=== PATIENT | female | born 1975 | race Two or more races ===

== ENCOUNTER 2018-06-05 19:36 | Emergency (ER) | END 2018-06-05 22:37 | disposition home or self-care (01) ==

== ENCOUNTER 2018-06-07 08:57 | Emergency (ER) | END 2018-06-07 11:24 | disposition home or self-care (01) ==

== ENCOUNTER 2018-10-01 05:14 | Inpatient (IN) | payer OTHER ==
[~2018-10-01] VITALS: Ht 149.9 cm; Wt 64.1 kg
[~2018-10-01 05:14] MED LIST: ACET500C5 PO; CEPH-443 PO; CIPR500T4 PO
--- NOTE | 2018-10-01 06:18 | ERD ---
ER Documentation Chief Complaint Chief Complaint woke up sweaty, dizzy, felt hot, states vision went black for a few seconds HPI 43-year-old female ambulatory to the ED complaining of feeling weak, dizzy and hot. Symptoms began last night when she went to bed and upon awakening to go to the bathroom early this morning felt lightheaded, dizzy as if she would pass out and vision got blurry for a few seconds. Denies headache or neck pain. No chest pain, palpitations, shortness of breath, cough or hemoptysis. Denies abdominal p ain, nausea, vomiting, diarrhea or constipation. Polyuria but no dysuria, hematuria or flank pain. No vaginal discharge or bleeding. Denies URI symptoms, odynophagia or rhinorrhea. SUbjective fevers and chills. ROS All systems reviewed and are negative except as per history of present illness. Medications Home Meds Discontinued Scripts Ciprofloxacin Hcl* (Ciprofloxacin Hcl*) 500 Mg Tablet, 500 MG PO BID for 7 Days, TAB Prov:QUINTIN MANZO PA-C 06/07/18 Acetaminophen* (Tylophen*) 500 Mg Capsule, 1 CAP PO Q6H PRN for PAIN AND OR ELEVATED TEMP, #20 CAP Prov:PAVEL GARVIN PA-C 06/05/18 Cephalexin* (Keflex*) 500 Mg Capsule, 500 MG PO TID for 7 Days, CAP Prov:PAVEL GARVIN PA-C 06/05/18 Allergies Allergies: Coded Allergies: No Known Drug Allergies (Verified Allergy, Unknown, 10/01/18) PMhx/Soc Reviewed in chart. As per HPI. History of Surgery: Yes () Anesthesia Reaction: No Hx Neurological Disorder: No Hx Respiratory Disorders: No Hx Cardiac Disorders: No Hx Psychiatric Problems: No Hx Miscellaneous Medical Probl: Yes (h/o UTI) Hx Alcohol Use: No Hx Substance Use: No Hx Tobacco Use: No Smoking Status: Never smoker FmHx Mother: Diabetes. Father: Prostate cancer Physical Exam Vitals Vital Signs Date Temp Pulse Resp B/P (MAP) Pulse Ox O2 O2 Flow FiO2 Time Delivery Rate 10/01/18 113 18 127/80 100 Room Air 10:15 (96) 10/01/18 101.0 09:21 10/01/18 101.0 124 18 126/84 100 Room Air 09:10 (98) 10/01/18 100.5 135 18 135/78 100 Room Air 08:00 (97) 10/01/18 103.2 06:33 10/01/18 103.5 138 18 146/88 100 Room Air 06:30 (107) 10/01/18 101.8 139 21 146/88 100 Room Air 06:14 (107) 10/01/18 100.1 160 20 153/92 99 05:18 (112) Physical Exam Const: Alert, moderate distress Head: Atraumatic Eyes: Pupils equal react to light, extraocular movements are intact normal Conjunctiva ENT: Normal External Ears, Nose and Mouth. Pharynx is clear without erythema or exudate. Neck: Full range of motion. No meningismus. No lymphadenopathy or tenderness. Resp: Breath sounds are equal and clear to auscultation bilaterally Cardio: Tachycardic, regular rate and rhythm, no murmurs Abd: Soft, non tender, non distended. Normal bowel sounds Skin: No petechiae or rashes Back: No midline or flank tenderness Ext: No cyanosis, or edema Neur: Awake and alert. No focal deficit Psych: Anxious but not depressed. Result Diagram: 10/02/18 0553 10/02/18 0553 Results 24 hrs Laboratory Tests Test 10/01/18 05:45 10/01/18 06:54 10/01/18 07:24 10/01/18 08:59 White Blood Count 14.1 10^3/ul Red Blood Count 4.78 10^6/ul Hemoglobin 14.2 g/dl Hematocrit 42.1 % Mean Corpuscular 88.1 fl Volume Mean Corpuscular 29.7 pg Hemoglobin Mean Corpuscular 33.7 g/dl Hemoglobin Concen t Red Cell 12.4 % Distribution Width Platelet Count 345 10^3/UL Mean Platelet 10.7 fl Volume Immature 0.500 % Granulocytes % Neutrophils % 83.8 % Lymphocytes % 5.9 % Monocytes % 8.5 % Eosinophils % 0.9 % Basophils % 0.4 % Nucleated Red 0.0 /100WBC Blood Cells % Immature 0.070 10^3/ul Granulocytes # Neutrophils # 11.9 10^3/ul Lymphocytes # 0.8 10^3/ul Monocytes # 1.2 10^3/ul Eosinophils # 0.1 10^3/ul Basophils # 0.1 10^3/ul Nucleated Red 0.0 10^3/ul Blood Cells # Prothrombin Time 12.4 Sec Prothrombin Time 1.0 Ratio INR International 0.91 Normalized Ratio Activated 25.1 Sec Partial Thrombopl ast Time Sodium Level 137 mmol/L Potassium Level 4.0 mmol/L Chloride Level 104 mmol/L Carbon Dioxide 21 mmol/L Level Anion Gap 12 Blood Urea 11 mg/dl Nitrogen Creatinine 0.76 mg/dl Est Glomerular > 60 mL/min Filtrat Rate mL/min Glucose Level 135 mg/dl Calcium Level 9.3 mg/dl Total Bilirubin 0.1 mg/dl Direct Bilirubin 0.00 mg/dl Indirect 0.1 mg/dl Bilirubin Aspartate Amino 36 IU/L Transf (AST/SGOT) Alanine 11 IU/L Aminotransferase (ALT/SGPT) Alkaline 135 IU/L Phosphatase Troponin I < 0.012 ng/ml Total Protein 8.3 g/dl Albumin 4.3 g/dl Globulin 4.00 g/dl Albumin/Globulin 1.07 Ratio POC Venous 2.3 mmol/L 2.0 mmol/L Lactate Urine Color STRAW Urine Clarity CLEAR Urine pH 6.0 Urine Specific 1.005 [place] Urine Ketones NEGATIVE mg/dL Urine Nitrite NEGATIVE mg/dL Urine Bilirubin NEGATIVE mg/dL Urine NEGATIVE mg/dL Urobilinogen Urine Leukocyte NEGATIVE Ga/ul Esterase Urine Hemoglobin NEGATIVE mg/dL Urine Glucose NEGATIVE mg/dL Urine Total NEGATIVE mg/dl Protein Urine NEGATIVE Test Test 10/01/18 10:30 Lactic Acid Level 1.8 mmol/L Current Medications Medications Dose Sig/Cyril Start Time Status Last (Trade) Ordered Route PRN Stop Time Admin Dose Reason Admin Sodium 1,900 ml BOLUS OVER 2 10/01/18 DC 10/01/18 Chloride HOURS STAT 06:19 06:33 (NS) IV* 10/01/18 06:22 650 mg ONCE STAT 10/01/18 DC 10/01/18 Acetaminophen PO 06:19 06:33 (Tylenol 10/01/18 06:22 Tab) Cefepime HCl 50 ml @ ONCE STAT 10/01/18 DC 10/01/18 100 mls/hr IVPB 07:07 07:18 10/01/18 07:36 Vancomycin 250 ml @ ONCE ONCE 10/01/18 DC 10/01/18 HCl 125 mls/hr IVPB 07:30 07:54 10/01/18 09:29 Ibuprofen 600 mg STK-MED 10/01/18 DC (Motrin) ONCE .ROUTE 09:09 10/01/18 09:10 Ibuprofen 600 mg ONCE ONCE 10/01/18 DC 10/01/18 (Motrin) PO 09:30 09:21 10/01/18 09:31 Sodium 1,000 ml @ Q1H ONCE 10/01/18 DC 10/01/18 Chloride 1,000 mls/hr IV 09:30 09:21 10/01/18 10:29 Sodium 1,000 ml @ [id number] IV 10/01/18 10/02/18 Chloride 70 mls/hr 10:48 01:06 IV Flush 3 ml PER 10/01/18 (NS 3 ml) PROTOCOL IV 11:00 Ondansetron 4 mg Q6H PRN 10/01/18 HCl (Zofran IV NAUSEA 11:00 Inj) AND/OR VOMITING 650 mg Q6H PRN 10/01/18 10/01/18 Acetaminophen PO PAIN 11:00 20:55 (Tylenol LEVEL 1-3 OR Tab) FEVER 1 tab Q6H PRN 10/01/18 10/01/18 Acetaminophen PO PAIN 11:00 19:02 / LEVEL 4-6 Hydrocodone Bitart ([place] (5/325)) Vancomycin VANCOMYCIN PER 10/01/18 HCl (Vanco PER PHARMACY PROTOCOL XX 11:00 Iv Per Pharmacy) Procedures/MDM DOCUMENTS REVIEWED: ED nurse, prior records EKG: Time: 06 52. Sinus tachycardia. Ventricular rate 142. Normal [place]/QRS. Left axis deviation. Minimal voltage criteria for left ventricular hypertrophy. No acute ST segment elevation or depression. My Interpretation IMAGING: Chest AP portable. Cardiac silhouette is normal. The costophrenic angles are clear. No effusions or infiltrates. No abnormalities of the bony thorax. My interpretation. MEDICAL DECISION MAKIN-year-old female ambulatory to the ED complaining of feeling weak, dizzy and hot. CBC significant for leukocytosis. Chemistry negative for electrolyte abnormalities, hyper/hypoglycemia or renal insufficiency. Liver function tests remarkable for mildly elevated alk phosphatase but no hyperbilirubinemia or transaminitis. Urinalysis negative. No radiographic evidence of pneumonia. EKG significant for sinus tachycardia wi thout ischemic changes or ectopy. Abdominal exam is completely benign without tenderness, rebound, guarding, signs of peritonitis or an occult intra-abdominal source including but not limited to appendicitis, diverticulitis, bowel obstruction, obstructive uropathy, abdominal aortic aneurysm and occult neoplasm hence advanced imaging is not indicated. Influenza A/B is negative. Multiple criteria for systemic inflammatory response syndrome including fever, tachycardia, tachypnea and leukocytosis. Normal saline 30 cc/kg bolus given and broad-spectrum antibiotics after cultures. Initial lactate 2.3 mmol/L consistent with severe sepsis and repeat is 2.0 mmol/L. No infectious source is identified possible viral etiology although cultures are pending. No meningismus, signs of meningitis or encephalitis and lumbar puncture is not indicated. Patient observed in the ED for over 4 hours and there is persistent tachycardia despite antipyretics and aggressive fluid resuscitation. Patient w ill be admitted to telemetry for infectious disease consultation, cardiac monitoring, further evaluation and management. Sepsis Documentation: Patient's infectious symptoms have not stabilized and the patient is at risk of rapid decompensation. The patient will be admitted for careful hydration, antibiotic therapy, and infectious source control. SEVERE SEPSIS CRITERIA: Infectious source: [] End organ damage indicated by: Lactate > 2.0 mmol/L SEPSIS MANAGEMENT Time of recognition of severe sepsis: 06:54. Time of recognition of septic shock: Time of recognition of septic shock: No criteria for septic shock at this time. 3 HOUR BUNDLE Blood cultures x 2 before broad-spectrum antibiotics: Yes 30 ml/kg NS bolus: Completed Initial lactate: 2.3 mmol/L Repeat lactate []mmol/L SEPTIC SHOCK ASSESSMENT: Lactic acid > 4.0: No Persistent hypotension (SBP < 90 or 40 mmHg drop, MAP < 65) despite 30 mL/kg IV fluid bolus: No CRITICAL CARE Critical care time 35 minutes Emergent fluid management while maintaining close respiratory support. Provision of immediate and broad-spectrum antibiotic therapy. Simultaneous assessment for possible sources in order to direct targeted therapy. Consideration for invasive and chemical support to prevent cardiopulmonary collapse. Critical care time is independent of procedures performed. Departure Diagnosis: Primary Impression: Fever Fever type: unspecified Qualified Codes: R50.9 - Fever, unspecified Additional Impressions: SIRS (systemic inflammatory response syndrome) Severe sepsis Tachycardia Condition: Serious TATI SERRATO MD Oct 01, 2018 06:18
[2018-10-01] MEDS ORDERED: ACETAMINOPHEN 325 MG TAB PO STA (06:19)
[2018-10-01] MEDS ORDERED: SODIUM CHLORIDE 0.9% 1L BAG IV* STA (06:19)
[2018-10-01] MEDS ORDERED: CEFEPIME 2GM/50 ML (PMX) 50 ML IVPB STA (07:07)
[2018-10-01] MEDS ORDERED: VANCOMYCIN 1 GM (PMX) 250 ML IVPB ONE (07:30)
[2018-10-01] MEDS ORDERED: IBUPROFEN 600 MG TAB ONE (09:09)
[2018-10-01] MEDS ORDERED: SOD CHLORIDE 0.9% 1,000 ML IV ONE (09:30)
[2018-10-01] MEDS ORDERED: IBUPROFEN 600 MG TAB PO ONE (09:30)
[2018-10-01] MEDS ORDERED: VANCOMYCIN IV PER PHARMACY XX SCH (11:00)
[2018-10-01] MEDS ORDERED: ONDANSETRON 4 MG INJ IV PRN ×2 (11:00→12:00)
[2018-10-01] MEDS ORDERED: HYDROCODONE/APAP (5/325) TAB PO PRN (11:00)
[2018-10-01] MEDS ORDERED: NACL 0.9% 3 ML SYG IV SCH (11:00)
[2018-10-01] MEDS ORDERED: ACETAMINOPHEN 325 MG TAB PO PRN ×2 (11:00→12:00)
--- NOTE | 2018-10-01 11:29 | CONS ---
Date/Time of Note Date/Time of Note DATE: 10/01/18 TIME: 11:02 Assessment/Plan Assessment/Plan Hospital Course ID SHORT NOTE=> Please refer to Dr. Rojo's FULL CONSULT NOTE pending dictation. CURRENT ABX: DAY # 1=> VANCO IV + CEFEPIME 10/01/1845 10/01/18 0545 HOSPITAL EMERGENCY ROOM EVENTS * 43 yo F presented W/tachycardia (SVT), fevers 103.5, LEUKOCYTOSIS 14.1, (+)venous lactic acid elevated with report of near syncopal episode reported "sweaty, dizzy, felt hot, states vision went black for a few seconds upon ambulation." * QUOTING ED MD INITIAL NOTE: "Denies headache or neck pain. No chest pain, palpitations, shortness of breath, cough or hemoptysis. Denies abdominal pain, nausea, vomiting, diarrhea or constipation. Polyuria but no dysuria, hematuria or flank pain. No vaginal discharge or bleeding. Denies URI symptoms, odynophagia or rhinorrhea. Subjective fevers and chills." INITIAL WORK UP RESULTS * 10/01/18 UA - Negative for concern UTI * 10/01/18 INFLUENZA A & B BY EIA Final INFLU A&B BY EIA INFLUENZA A NEGATIVE (Ref Range Neg) INFLUENZA B NEGATIVE (Ref Range Neg) * 10/01/18 CXR: FINDINGS:The cardiomediastinal silhouette has a normal appearance. There is a shallow inspiration. There is no evidence for an infiltrate. There is no evidence for congestive heart failure. There is no evidence for pneumothorax. The osseous structures are intact. IMPRESSION:No evidence for active cardiopulmonary disease. * EKG: Time: . Sinus tachycardia. Ventricular rate 142. Normal [place]/QRS. Left axis deviation. Minimal voltage criteria for left ventricular hypertrophy. No acute ST segment elevation or depression. * 10/01/[address]: IMPRESSION:No acute intracranial pathology identified. If there is persistent clinical concern, consider further evaluation with MRI. ROS: All systems reviewed and are negative except as per history of present illness. PMHX: G3, P2, Miscarriage x1=> UTI w/recurrent Vaginal bleeding in MAY 2018 resulting in miscarriage per prior ED Visit / US PELVIS 06/05/2018 PSURGHx: FAMILY HX: Father w/Prostate CA SOCIAL HX: * Hx Alcohol Use: No * Hx Substance Use: No * Hx Tobacco Use: No * Smoking Status: Never smoker MICRO * 10/01/18 BCx --> PENDING PHYSICAL EXAMINATION: GENERAL: Afebrile, VSS, HEENT: AT, NC, anicteric NECK: Supple, trach midline CHEST: Equal chest rise bilaterally, without dyspnea on observation HEART: Pulse RRR ABDOMEN: Soft / NT EXTREMITIES: Warm, dry SKIN: No rash, no diaphoresis ID ASSESSMENT 43 yo F admit with: 1. SEPSIS PER SIRS CRITERIA: tachycardia (SVT), fevers 103.5, LEUKOCYTOSIS 14.1, (+)venous lactic acid elevated ON ADMISSION. 2. Fever of unknown origin -- Possibly viral syndrome? 3. Near syncopal episode in setting of #1 ( )MRSA Nares -> will order ABX ALLERGIES: NKDA INVASIVES: PI CURRENT ABX: DAY # 1=> VANCO IV + CEFEPIME ID RECOMMENDATIONS/PLAN: Continue current ABX -- await micro results . Result Diagram: 10/01/18 0545 10/01/18 0545 Results 24hrs Laboratory Tests Test 10/01/18 05:45 10/01/18 06:54 10/01/18 07:24 10/01/18 08:59 White Blood Count 14.1 #H Red Blood Count 4.78 Hemoglobin 14.2 Hematocrit 42.1 Mean Corpuscular 88.1 Volume Mean Corpuscular 29.7 Hemoglobin Mean Corpuscular 33.7 Hemoglobin Concent Red Cell 12.4 Distribution Width Platelet Count 345 Mean Platelet Volume 10.7 H Immature 0.500 H Granulocytes % Neutrophils % 83.8 H Lymphocytes % 5.9 L Monocytes % 8.5 Eosinophils % 0.9 Basophils % 0.4 Nucleated Red Blood 0.0 Cells % Immature 0.070 H Granulocytes # Neutrophils # 11.9 H Lymphocytes # 0.8 Monocytes # 1.2 H Eosinophils # 0.1 Basophils # 0.1 Nucleated Red Blood 0.0 Cells # Prothrombin Time 12.4 Prothrombin Time 1.0 Ratio INR International 0.91 Normalized Ratio Activated 25.1 Partial Thromboplast Time Sodium Level 137 Potassium Level 4.0 Chloride Level 104 Carbon Dioxide Level 21 Anion Gap 12 Blood Urea Nitrogen 11 Creatinine 0.76 Est Glomerular > 60 Filtrat Rate mL/min Glucose Level 135 Calcium Level 9.3 Total Bilirubin 0.1 L Direct Bilirubin 0.00 Indirect Bilirubin 0.1 Aspartate Amino 36 Transf (AST/SGOT) Alanine 11 L Aminotransferase (AL T/SGPT) Alkaline Phosphatase 135 H Troponin I < 0.012 Total Protein 8.3 H Albumin 4.3 Globulin 4.00 H Albumin/Globulin 1.07 Ratio POC Venous Lactate 2.3 *H 2.0 Urine Color STRAW Urine Clarity CLEAR Urine pH 6.0 Urine Specific 1.005 [place] Urine Ketones NEGATIVE Urine Nitrite NEGATIVE Urine Bilirubin NEGATIVE Urine Urobilinogen NEGATIVE Urine Leukocyte NEGATIVE Esterase Urine Hemoglobin NEGATIVE Urine Glucose NEGATIVE Urine Total Protein NEGATIVE Test 10/01/18 10:30 Lactic Acid Level 1.8 Consultation Date/Type/Reason Admit Date/Time Initial Consult Date 10/01/18 Exam/Review of Systems Vital Signs Vitals Vital Signs Date Temp Pulse Resp B/P (MAP) Pulse Ox O2 O2 Flow FiO2 Time Delivery Rate 10/01/18 113 18 127/80 100 Room Air 10:15 (96) 10/01/18 101.0 09:21 Medications Medications Current Medications Cefepime HCl 50 ml @ 100 mls/hr Q12 IVPB ; Start 10/01/18 at 19:00; Status UNV Sodium Chloride 1,000 ml @ 70 mls/hr [id number] IV ; Start 10/01/18 at 10:48; Status UNV IV Flush (NS 3 ml) 3 ml PER PROTOCOL IV ; Start 10/01/18 at 11:00; Status UNV Ondansetron HCl (Zofran Inj) 4 mg Q6H PRN IV NAUSEA AND/OR VOMITING; Start 10/01/18 at 11:00; Status UNV Acetaminophen (Tylenol Tab) 650 mg Q6H PRN PO PAIN LEVEL 1-3 OR FEVER; Start at 11:00; Status UNV Acetaminophen/ Hydrocodone Bitart ([place] (5/325)) 1 tab Q6H PRN PO PAIN LEVEL 4-6; Start 10/01/18 at 11:00; Status UNV ROBERTO VEGA NP Oct 01, 2018 11:12
--- NOTE | 2018-10-01 11:36 | HP ---
Date/Time of Note Date/Time of Note DATE: 10/01/18 TIME: 11:36 Assessment/Plan VTE Prophylaxis Pharmacological prophylaxis: other Lines/Catheters IV Catheter Type (from Nrs): Saline Lock Assessment/Plan Hospital Course Objective Physical exam General: Patient is laying in bed and answers questions appropriately Mentation: Patient is alert and oriented 4, Head: Normocephalic atraumatic Eyes: EOMI, pupils reactive to light Neck: Supple, nontender, midline Respiratory: Clear to auscultation bilaterally Cardiovascular: Tachycardic rate, no obvious murmurs Gastrointestinal: non-tender to palpation, bowel sounds heard. Neurological: Moves all extremities spontaneously Skin: No new skin lesions Assessment and plan Fever, leukocytosis, tachycardia -No known source as of yet -Chest x-ray clear, UA negative -Blood cultures pending -empiric antibiotics for now as we do not know the exact cause of her symptoms -ID on board Near syncope and dizziness with possible blurry vision -CT of the brain rule out posteriors circulation CVA, however very unlikely, symptoms are likely due to fever and tachycardia Tachycardia -Echo pending Lactic acidosis -Seen only on venous lactate, lactic acid in the blood is within normal limits Disposition -Monitor in the inpatient setting for fever, continue workup for source of fever. Infectious disease consultation pending Result Diagram: 10/01/18 0545 10/01/18 0545 Results 24hrs Laboratory Tests Test 10/01/18 05:45 10/01/18 06:54 10/01/18 07:24 10/01/18 08:59 White Blood Count 14.1 #H Red Blood Count 4.78 Hemoglobin 14.2 Hematocrit 42.1 Mean Corpuscular 88.1 Volume Mean Corpuscular 29.7 Hemoglobin Mean Corpuscular 33.7 Hemoglobin Concent Red Cell 12.4 Distribution Width Platelet Count 345 Mean Platelet Volume 10.7 H Immature 0.500 H Granulocytes % Neutrophils % 83.8 H Lymphocytes % 5.9 L Monocytes % 8.5 Eosinophils % 0.9 Basophils % 0.4 Nucleated Red Blood 0.0 Cells % Immature 0.070 H Granulocytes # Neutrophils # 11.9 H Lymphocytes # 0.8 Monocytes # 1.2 H Eosinophils # 0.1 Basophils # 0.1 Nucleated Red Blood 0.0 Cells # Prothrombin Time 12.4 Prothrombin Time 1.0 Ratio INR International 0.91 Normalized Ratio Activated 25.1 Partial Thromboplast Time Sodium Level 137 Potassium Level 4.0 Chloride Level 104 Carbon Dioxide Level 21 Anion Gap 12 Blood Urea Nitrogen 11 Creatinine 0.76 Est Glomerular > 60 Filtrat Rate mL/min Glucose Level 135 Calcium Level 9.3 Total Bilirubin 0.1 L Direct Bilirubin 0.00 Indirect Bilirubin 0.1 Aspartate Amino 36 Transf (AST/SGOT) Alanine 11 L Aminotransferase (AL T/SGPT) Alkaline Phosphatase 135 H Troponin I < 0.012 Total Protein 8.3 H Albumin 4.3 Globulin 4.00 H Albumin/Globulin 1.07 Ratio POC Venous Lactate 2.3 *H 2.0 Urine Color STRAW Urine Clarity CLEAR Urine pH 6.0 Urine Specific 1.005 [place] Urine Ketones NEGATIVE Urine Nitrite NEGATIVE Urine Bilirubin NEGATIVE Urine Urobilinogen NEGATIVE Urine Leukocyte NEGATIVE Esterase Urine Hemoglobin NEGATIVE Urine Glucose NEGATIVE Urine Total Protein NEGATIVE Test 10/01/18 10:30 Lactic Acid Level 1.8 HPI/ROS Admit Date/Time Admit Date/Time Hx of Present Illness Patient is a female with no significant past medical history presents to [facility] for acute onset fever, chills, tachycardia. Patient states that she was to her normal health as of last night she awoke to the symptoms. Patient states that she woke up to fevers, chills, tachycardia, near syncope with dizziness and almost blurry vision. Patient currently feels a lot better at this time, no blurry vision or dizziness however does still feel feverish and still feels palpitations. Patient denies any type of pain throughout her entire body, no dysuria, no nausea no vomiting no abdominal pain no leg pain no headache no chest pain no shortness of breath. PMH/Family/Social Past Medical History Medications Current Medications Cefepime HCl 50 ml @ 100 mls/hr Q12 IVPB ; Start 10/01/18 at 19:00; Status UNV Sodium Chloride 1,000 ml @ 70 mls/hr [id number] IV ; Start 10/01/18 at 10:48; Status UNV IV Flush (NS 3 ml) 3 ml PER PROTOCOL IV ; Start 10/01/18 at 11:00; Status UNV Ondansetron HCl (Zofran Inj) 4 mg Q6H PRN IV NAUSEA AND/OR VOMITING; Start 10/01/18 at 11:00; Status UNV Acetaminophen (Tylenol Tab) 650 mg Q6H PRN PO PAIN LEVEL 1-3 OR FEVER; Start 10/01/18 at 11:00; Status UNV Acetaminophen/ Hydrocodone Bitart ([place] (5/325)) 1 tab Q6H PRN PO PAIN LEVEL 4-6; Start 10/01/18 at 11:00; Status UNV Vancomycin HCl (Vanco Iv Per Pharmacy) VANCOMYCIN PER PHARMACY PER PROTOCOL XX ; Start 10/01/18 at 11:00; Status UNV Coded Allergies: No Known Drug Allergies (Verified Allergy, Unknown, 10/01/18) Social History Smoking Status: Never smoker Exam/Review of Systems Vital Signs Vitals Vital Signs Date Temp Pulse Resp B/P (MAP) Pulse Ox O2 O2 Flow FiO2 Time Delivery Rate 10/01/18 113 18 127/80 100 Room Air 10:15 (96) 10/01/18 101.0 09:21 RODRIGO GUERRA Oct 01, 2018 11:36
--- NOTE | 2018-10-01 12:47 | CONS ---
DATE OF ADMISSION: 10/01/2018 DATE OF CONSULTATION: 10/01/2018 TYPE OF CONSULTATION: Infectious Disease. REASON FOR CONSULTATION: Antibiotic management. HISTORY OF PRESENT ILLNESS: Kristin Abreu is a 43-year-old female who comes in to the emergency room w ith feelings of weakness, dizziness and warmth. The symptoms began last night when she went to bed. Early this morning she felt lightheaded, dizzy and felt that she would pass out. Her vision got blur ry for a few seconds. She denies abdominal pain, nausea, vomiting. She has polyuria but no dysuria. PAST MEDICAL AND SURGICAL HISTORY: Status post . Also, history of UTI in the past. FAMILY HISTORY: Noncontributory. SOCIAL HISTORY: She does not smoke, drink or abuse drugs. ALLERGIES: NONE TO PENICILLIN, SULFA OR FOODS. MEDICATIONS: Per chart. REVIEW OF SYSTEMS: Noncontributory. PHYSICAL EXAMINATION: GENERAL: The patient is a well-developed, well-nourished female who is in moderate distress. VITAL SIGNS: Temperature T-max 103.5. SKIN: Without generalized rash. HEENT: Within normal limits. NECK: Supple. LYMPH NODES: None palpable. CHEST: Decreased breath sounds at the bases. HEART: Without murmur or gallop. She is tachycardic. ABDOMEN: Soft, nontender, without organosplenomegaly or masses. EXTREMITIES: Without cyanosis, clubbing, or edema. RECTAL AND GENITAL: Deferred. NEUROLOGIC: No focal neurological abnormality. PSYCHIATRIC: She is anxious, but not depressed. ANCILLARY LABORATORY DATA: White count of 14.1, H and H of 14.2 and 42.1, platelet count 345,000. B UN and creatinine 11/0.76, glucose of 135. IMPRESSION AND PLAN: The patient felt to be septic. She was hydrated, placed on vancomycin and cefe pime. Her chest x-ray showed no infiltrates. Chemistry is negative for electrolyte imbalances. Sruthi er function tests showed mildly elevated alkaline phosphatase, no radiographic evidence of pneumonia. She has criteria for systemic inflammatory response syndrome with fever, tachycardia, tachypnea and leukocytosis. Her abdomen is benign. Patient appears septic. Therefore, she was started on vancom ycin and cefepime and will look for the source of her infection. I will dictate my findings to the ospitalist. Dictated By: YULI CHÁVEZ MD, JD/EDWINA Conf#: [id number] [facility]#: [id number]
--- NOTE | 2018-10-01 14:56 | RADRPT ---
Echocardiogram Report Patient Name: SHAUN VIERA Gender: Female Date: 1975 Study Date: 01-Oct-2018 Rod Puller: Yodit Aranda RDCS Location: 525 Ref. Physician: RODRIGO GUERRA Quality: Adequate Procedures: Transthoracic echocardiogram with complete 2D, M-Mode, and doppler examination. Indications: Tachycardia. 2D/M Mode Doppler Measurement Value Normal Ranges Measurement Value Normal Ranges LVIDd 2D 3.6 3.5 - 5.6 cm AV Peak [place] 1.4 m/sec LVIDs 2D 2.4 2.1 - 4.1 cm AV Peak PG 8.0 mmHg LVPWd 2D 0.9 0.6 - 1.1 cm LVOT Peak [place] 0.9 m/sec IVSd 2D 0.7 0.6 - 1.1 cm LVOT Peak PG 3.0 mmHg AoR Diam 2D 2.7 2.0 - 3.7 cm MV E Peak [place]enceslao 0.7 m/sec LA/Ao 2D 1 0 - 1 MV A Peak [place] 0.3 m/sec LA Dimen 2D 3.1 2.3 - 4.0 cm MV E/A 2.5 MV Decel Time 183 msec Lat E` Wenceslao 0.2 m/sec Lateral E/E` 4.4 Med E` Wenceslao 0.1 m/sec MV E/A 2.5 PV Peak W[place]o 1.0 m/sec PV Peak PG 4.0 mmHg Findings Left Ventricle: Normal left ventricular systolic function. Normal left ventricular cavity size. Normal left ventricular wall thickness. Ejection fraction is visually estimated at 55 %. Tissue Doppler/Mitral Doppler indices are within normal limits. Right Ventricle: Normal right ventricular size. Normal right ventricular systolic function. Left Atrium: The left atrium is normal in size. Right Atrium: The right atrium is normal in size. Mitral Valve: Normal appearance of the mitral valve. No mitral valve regurgitation is seen. Aortic Valve: Normal appearance of the aortic valve. No aortic regurgitation. Tricuspid Valve: Normal appearance of the tricuspid valve. No evidence of tricuspid regurgitation. Pulmonic Valve: Normal pulmonic valve appearance. No evidence of pulmonic regurgitation. Pericardium: Normal pericardium with no significant pericardial effusion. Aorta: Normal aortic root. IVC: Normal size and normal respiratory collapse consistent with normal right atrial pressure. Conclusions Normal left ventricular systolic function. Normal left ventricular cavity size. Normal left ventricular wall thickness. Ejection fraction is visually estimated at 55 %. Tissue Doppler/Mitral Doppler indices are within normal limits. Normal appearance of the mitral valve. No mitral valve regurgitation is seen. Normal appearance of the tricuspid valve. No evidence of tricuspid regurgitation. Electronically Signed By: Lyndon Wan 01-Oct-2018 14:55:48 -0800 Patient Name: SHAUN VIERA Study Date: 01-Oct-2018 [id number]
[2018-10-01 14:57] VITALS: PULSE 101
[2018-10-01] MEDS: VANCOMYCIN 1 GM 250 ML IVPB SCH (15:21)
[2018-10-01 15:43] VITALS: Ht 149.9 cm; Wt 64.1 kg
[2018-10-01 15:44] VITALS: BP 131/84; PULSE 105; RESP 18
[2018-10-01] MEDS: SOD CHLORIDE 0.9% 1,000 ML IV SCH (16:13)
[2018-10-01 16:16] VITALS: PULSE 103
[2018-10-01] MEDS: CEFEPIME 1GM/50 ML (PMX) 50 ML IVPB SCH (17:51)
[2018-10-01] MEDS ORDERED: CEFEPIME 1GM/50 ML (PMX) 50 ML IVPB SCH (19:00)
[2018-10-01 20:00] VITALS: PULSE 112
[2018-10-01 20:28] VITALS: BP 135/87; PULSE 118; RESP 17
[2018-10-02] VITALS (12 sets, daily range): BP systolic 117–131; BP diastolic 70–82; PULSE 70–110; RESP 17–18
[2018-10-02] MEDS: SOD CHLORIDE 0.9% 1,000 ML IV SCH ×2 (01:06→15:24)
[2018-10-02] MEDS: VANCOMYCIN 1 GM 250 ML IVPB SCH ×2 (02:00→13:43)
[2018-10-02] MEDS: CEFEPIME 1GM/50 ML (PMX) 50 ML IVPB SCH ×2 (08:51→20:28)
--- NOTE | 2018-10-02 12:28 | PN ---
Date/Time of Note Date/Time of Note DATE: 10/02/18 TIME: 12:27 Assessment/Plan VTE Prophylaxis Risk score (from Ns)>0 risk: 2 SCD applied (from Ns): No SCD contraindicated: low risk/ambulating Pharmacological prophylaxis: LMWH Lines/Catheters IV Catheter Type (from [facility]): Peripheral IV Urinary Cath still in place: No Assessment/Plan Hospital Course Assessment and plan 1. Sirs suspected sepsis unknown etiology likely viral process. Stable continue supportive care 2. History of 3. History of UTI Subjective: Less fever. Positive cough recent sore throat. Did not receive her flu shot. Fairly nonproductive cough. No travel ill contacts. No dysuria abdominal pain rash. Objective: Sinus rhythm less tacky fever noted Physical exam No pallor icterus adenopathy Regular no murmur gallop Clear Benign No edema Result Diagram: 10/02/18 0553 10/02/18 0553 Results 24hrs Laboratory Tests Test 10/02/18 05:53 White Blood Count 7.4 # Red Blood Count 4.35 Hemoglobin 13.0 Hematocrit 38.9 Mean Corpuscular Volume 89.4 Mean Corpuscular Hemoglobin 29.9 Mean Corpuscular Hemoglobin Concent 33.4 Red Cell Distribution Width 12.7 Platelet Count 266 # Mean Platelet Volume 10.5 H Immature Granulocytes % 0.400 Neutrophils % 72.5 Lymphocytes % 9.9 L Monocytes % 15.9 H Eosinophils % 0.9 Basophils % 0.4 Nucleated Red Blood Cells % 0.0 Immature Granulocytes # 0.030 Neutrophils # 5.4 Lymphocytes # 0.7 L Monocytes # 1.2 H Eosinophils # 0.1 Basophils # 0.0 Nucleated Red Blood Cells # 0.0 Sodium Level 138 Potassium Level 4.2 Chloride Level 104 Carbon Dioxide Level 23 Anion Gap 11 Blood Urea Nitrogen 9 Creatinine 0.72 Est Glomerular Filtrat Rate mL/min > 60 Glucose Level 94 # Hemoglobin A1c 5.3 Calcium Level 8.9 Magnesium Level 1.9 Total Bilirubin 0.0 L Direct Bilirubin 0.00 Indirect Bilirubin 0.0 Aspartate Amino Transf (AST/SGOT) 26 Alanine Aminotransferase (ALT/SGPT) 22 Alkaline Phosphatase 82 Total Protein 7.2 # Albumin 3.7 Globulin 3.50 H Albumin/Globulin Ratio 1.05 Exam/Review of Systems Vital Signs Vitals Vital Signs Date Temp Pulse Resp B/P (MAP) Pulse Ox O2 O2 Flow FiO2 Time Delivery Rate 10/02/18 106 08:16 10/02/18 98.2 18 118/76 98 07:52 (90) 10/01/18 Room Air 15:44 Intake and Output 10/01/18 10/01/18 10/02/18 1515:00 23:00 07:00 IntakeIntake Total 3200 ml 300 ml 800 ml BalanceBalance 3200 ml 300 ml 800 ml Medications Medications Current Medications Sodium Chloride 1,000 ml @ 70 mls/hr [id number] IV Last administered on 10/02/18 01:06; Admin Dose 70 MLS/HR; Start 10/01/18 at 10:48 IV Flush (NS 3 ml) 3 ml PER PROTOCOL IV ; Start 10/01/18 at 11:00 Ondansetron HCl (Zofran Inj) 4 mg Q6H PRN IV NAUSEA AND/OR VOMITING; Start at 11:00 Acetaminophen (Tylenol Tab) 650 mg Q6H PRN PO PAIN LEVEL 1-3 OR FEVER Last administered on 10/01/18at 20:55; Admin Dose 650 MG; Start 10/01/18 at 11:00 Acetaminophen/ Hydrocodone Bitart ([place] (5/325)) 1 tab Q6H PRN PO PAIN LEVEL 4-6 Last administered on 10/01/18at 19:02; Admin Dose 1 TAB; Start 10/01/18 at 11:00 Vancomycin HCl (Vanco Iv Per Pharmacy) VANCOMYCIN PER PHARMACY PER PROTOCOL XX ; Start 10/01/18 at 11:00 Cefepime HCl 50 ml @ 100 mls/hr Q12 IVPB Last administered on 10/02/18at 08:51; Admin Dose 100 MLS/HR; Start 10/01/18 at 18:00 Vancomycin HCl 250 ml @ 125 mls/hr Q12H IVPB Last administered on 10/02/18at 02:00; Admin Dose 125 MLS/HR; Start 10/01/18 at 14:00 SILVANA SALAS MD Oct 02, 2018 12:28
--- NOTE | 2018-10-02 12:31 | CONS ---
Date/Time of Note Date/Time of Note DATE: 10/02/18 TIME: 12:31 Assessment/Plan Assessment/Plan Hospital Course ID PROGRESS NOTE CURRENT ABX: DAY #2=> VANCO IV + CEFEPIME 10/02/18 0553 10/02/18 0553 24 HOUR INTERVAL SUMMARY * Feeling much better - no fevers/chills/BARNETT/meningismus/N/V/D/DP/SOB * (+)Mild pharyngitis reported, without odynophagia -- SUSPECT VIRAL SYNDROME * 10/01/18 2D ECHO: Conclusions * Normal left ventricular systolic function. Normal left ventricular cavity size. Normal left ventricular wall thickness. Ejection fraction is visually estimated at 55 %. Tissue Doppler/Mitral Doppler indices are within normal limits.Normal appearance of the mitral valve. No mitral valve regurgitation is seen.Normal appearance of the tricuspid valve. No evidence of tricuspid regurgitation. MICRO * 10/01/18 URINE CULTURE Preliminary Organism 1 MIXED GRAM POSITIVE ORGANISMS COLONY COUNT 10,000 - 20,000 CFU/ml * 10/01/18 INFLUENZA A & B BY EIA Final INFLU A&B BY EIA INFLUENZA A NEGATIVE (Ref Range Neg) INFLUENZA B NEGATIVE (Ref Range Neg) * 10/01/18 BCx --> (-) preliminary PHYSICAL EXAMINATION: GENERAL: Afebrile, VSS, HEENT: AT, NC, anicteric NECK: Supple, trach midline CHEST: Equal chest rise bilaterally, without dyspnea on observation HEART: Pulse RRR ABDOMEN: Soft / NT EXTREMITIES: Warm, dry SKIN: No rash, no diaphoresis ID ASSESSMENT 43 yo F admit with: 1. SEPSIS PER SIRS CRITERIA: tachycardia (SVT), fevers 103.5, LEUKOCYTOSIS 14.1, (+)venous lactic acid elevated ON ADMISSION. 2. Fever of unknown origin -- Suspect viral syndrome as reported recent pharyngitis 3. Near syncopal episode in setting of #1 => RESOLVED 4. Hx of UTI -- no evidence current UTI 5. OB HX: G3, P2, Miscarriage x1, s/p => Vaginal bleeding in MAY 2018 resulting in miscarriage per prior ED Visit / US PELVIS 06/05/2018 ( )MRSA Nares -> pending ABX ALLERGIES: NKDA INVASIVES: PI CURRENT ABX: DAY # 2=> VANCO IV + CEFEPIME ID RECOMMENDATIONS/PLAN: -- SUSPECT VIRAL SYNDROME -- DC PLANNING = case d/w Dr. Rojo * As long as BCx remain (-) = DC IV ABX in am 10/03/18 and DC home OFF ABX * Patient and daughter were given update on Dr. Rojo's recommendations and c oncur . Result Diagram: 10/02/18 0553 10/02/18 0553 Results 24hrs Laboratory Tests Test 10/02/18 05:53 White Blood Count 7.4 # Red Blood Count 4.35 Hemoglobin 13.0 Hematocrit 38.9 Mean Corpuscular Volume 89.4 Mean Corpuscular Hemoglobin 29.9 Mean Corpuscular Hemoglobin Concent 33.4 Red Cell Distribution Width 12.7 Platelet Count 266 # Mean Platelet Volume 10.5 H Immature Granulocytes % 0.400 Neutrophils % 72.5 Lymphocytes % 9.9 L Monocytes % 15.9 H Eosinophils % 0.9 Basophils % 0.4 Nucleated Red Blood Cells % 0.0 Immature Granulocytes # 0.030 Neutrophils # 5.4 Lymphocytes # 0.7 L Monocytes # 1.2 H Eosinophils # 0.1 Basophils # 0.0 Nucleated Red Blood Cells # 0.0 Sodium Level 138 Potassium Level 4.2 Chloride Level 104 Carbon Dioxide Level 23 Anion Gap 11 Blood Urea Nitrogen 9 Creatinine 0.72 Est Glomerular Filtrat Rate mL/min > 60 Glucose Level 94 # Hemoglobin A1c 5.3 Calcium Level 8.9 Magnesium Level 1.9 Total Bilirubin 0.0 L Direct Bilirubin 0.00 Indirect Bilirubin 0.0 Aspartate Amino Transf (AST/SGOT) 26 Alanine Aminotransferase (ALT/SGPT) 22 Alkaline Phosphatase 82 Total Protein 7.2 # Albumin 3.7 Globulin 3.50 H Albumin/Globulin Ratio 1.05 Consultation Date/Type/Reason Admit Date/Time Oct 01, 2018 at 13:06 Initial Consult Date 10/01/18 Exam/Review of Systems Vital Signs Vitals Vital Signs Date Temp Pulse Resp B/P (MAP) Pulse Ox O2 O2 Flow FiO2 Time Delivery Rate 10/02/18 94 12:30 10/02/18 98.2 18 118/76 98 07:52 (90) 10/01/18 Room Air 15:44 Intake and Output 10/01/18 10/01/18 10/02/18 1515:00 23:00 07:00 IntakeIntake Total 3200 ml 300 ml 800 ml BalanceBalance 3200 ml 300 ml 800 ml Medications Medications Current Medications Sodium Chloride 1,000 ml @ 70 mls/hr [id number] IV Last administered on 10/02/18at 01:06; Admin Dose 70 MLS/HR; Start 10/01/18 at 10:48 IV Flush (NS 3 ml) 3 ml PER PROTOCOL IV ; Start 10/01/18 at 11:00 Ondansetron HCl (Zofran Inj) 4 mg Q6H PRN IV NAUSEA AND/OR VOMITING; Start 10/01/18 at 11:00 Acetaminophen (Tylenol Tab) 650 mg Q6H PRN PO PAIN LEVEL 1-3 OR FEVER Last administered on 10/01/18at 20:55; Admin Dose 650 MG; Start 10/01/18 at 11:00 Acetaminophen/ Hydrocodone Bitart ([place] (5/325)) 1 tab Q6H PRN PO PAIN LEVEL 4-6 Last administered on 10/01/18at 19:02; Admin Dose 1 TAB; Start 10/01/18 at 11:00 Vancomycin HCl (Vanco Iv Per Pharmacy) VANCOMYCIN PER PHARMACY PER PROTOCOL XX ; Start 10/01/18 at 11:00 Cefepime HCl 50 ml @ 100 mls/hr Q12 IVPB Last administered on 10/02/18at 08:51; Admin Dose 100 MLS/HR; Start 10/01/18 at 18:00 Vancomycin HCl 250 ml @ 125 mls/hr Q12H IVPB Last administered on 10/02/18at 02:00; Admin Dose 125 MLS/HR; Start 10/01/18 at 14:00 Enoxaparin Sodium (Lovenox) 40 mg DAILY SC ; Start 10/03/18 at 09:00; Status ROBERTO MO NP Oct 02, 2018 12:31
[2018-10-03] VITALS (10 sets, daily range): BP systolic 111–140; BP diastolic 68–80; PULSE 70–118; RESP 17–18
[2018-10-03] MEDS: VANCOMYCIN 1 GM 250 ML IVPB SCH (02:20)
[2018-10-03] MEDS: SOD CHLORIDE 0.9% 1,000 ML IV SCH (02:20)
[2018-10-03] MEDS: CEFEPIME 1GM/50 ML (PMX) 50 ML IVPB SCH (08:59)
[2018-10-03] MEDS ORDERED: ENOXAPARIN 40 MG/0.4 ML SYG SC SCH (09:00)
[2018-10-03] MEDS ORDERED: VANCOMYCIN HCL 1.25 GM in SOD CHLORIDE 0.9% 250 ML IVPB SCH (10:00)
--- NOTE | 2018-10-03 12:10 | CONS ---
Date/Time of Note Date/Time of Note DATE: 10/03/18 TIME: 12:00 Assessment/Plan Assessment/Plan Hospital Course ID PROGRESS NOTE CURRENT ABX: DAY #3=> VANCO IV + CEFEPIME 10/03/18 0545 10/03/18 0545 24 HOUR INTERVAL SUMMARY * Clinically much improved -- she had low grade TMax 99.1 today * Reports mild pharyngitis -- no exudate or petechiae seen on tonsils/palate--without odynophagia * CLINICAL SUSPICION consistent with VIRAL SYNDROME * Feeling much better - no fevers/chills/BARNETT/meningismus/N/V/D/DP/SOB * BLOOD CX are negative day #3 * 10/01/18 2D ECHO: Conclusions * Normal left ventricular systolic function. Normal left ventricular cavity size. Normal left ventricular wall thickness. Ejection fraction is visually estimated at 55 %. Tissue Doppler/Mitral Doppler indices are within normal limits.Normal appearance of the mitral valve. No mitral valve regurgitation is seen.Normal appearance of the tricuspid valve. No evidence of tricuspid regurgitation. MICRO * 10/01/18 URINE CULTURE Final Organism 1 MIXED GRAM POSITIVE ORGANISMS COLONY COUNT 10,000 - 20,000 CFU/ml Recovery of multiple organisms in a urine specimen is consistent with contamination. * 10/01/18 INFLUENZA A & B BY EIA Final INFLU A&B BY EIA INFLUENZA A NEGATIVE (Ref Range Neg) INFLUENZA B NEGATIVE (Ref Range Neg) * 10/01/18 BCx --> (-) preliminary PHYSICAL EXAMINATION: GENERAL: Afebrile, VSS, HEENT: AT, NC, anicteric NECK: Supple, trach midline CHEST: Equal chest rise bilaterally, without dyspnea on observation HEART: Pulse RRR ABDOMEN: Soft / NT EXTREMITIES: Warm, dry SKIN: No rash, no diaphoresis ID ASSESSMENT 43 yo F admit with: 1. s/p SEPSIS PER SIRS CRITERIA=> RESOLVED * s/p tachycardia (SVT), fevers 103.5, LEUKOCYTOSIS 14.1, (+)venous lactic acid elevated ON ADMISSION. 2. VIRAL URI w/viral pharyngitis suspected -> no tonsillar edema, exudate, petechiae 3. Near syncopal episode in setting of #1 => RESOLVED 4. Hx of UTI -- no evidence current UTI 5. OB HX: G3, P2, Miscarriage x1, s/p => Vaginal bleeding in MAY 2018 resulting in miscarriage per prior ED Visit / US PELVIS 06/05/2018 ABX ALLERGIES: NKDA INVASIVES: PI CURRENT ABX: DAY # 3=> VANCO IV + CEFEPIME ID RECOMMENDATIONS/PLAN: --SXS most consistent w/a VIRAL SYNDROME -- DC PLANNING = case d/w Dr. Chávez * TELEPHONE ORDER FROM DR. CHÁVEZ: DC ABX TODAY -- MAY DC home OFF ABX when cleared by primary * Patient given update on Dr. Chávez's recommendations and concurs . Result Diagram: 10/03/18 0545 10/03/18 0545 Results 24hrs Laboratory Tests Test 10/03/18 00:56 10/03/18 05:45 Vancomycin Level Trough 8.8 L White Blood Count 5.8 # Red Blood Count 4.55 Hemoglobin 13.6 Hematocrit 40.3 Mean Corpuscular Volume 88.6 Mean Corpuscular Hemoglobin 29.9 Mean Corpuscular Hemoglobin Concent 33.7 Red Cell Distribution Width 12.7 Platelet Count 248 Mean Platelet Volume 10.4 Immature Granulocytes % 0.300 Neutrophils % 57.9 Lymphocytes % 28.4 Monocytes % 11.9 H Eosinophils % 1.2 Basophils % 0.3 Nucleated Red Blood Cells % 0.0 Immature Granulocytes # 0.020 Neutrophils # 3.3 Lymphocytes # 1.6 Monocytes # 0.7 Eosinophils # 0.1 Basophils # 0.0 Nucleated Red Blood Cells # 0.0 Sodium Level 136 Potassium Level 3.8 Chloride Level 105 Carbon Dioxide Level 22 Anion Gap 9 Blood Urea Nitrogen 8 Creatinine 0.59 Est Glomerular Filtrat Rate mL/min > 60 Glucose Level 100 Calcium Level 8.7 Magnesium Level 1.9 Total Bilirubin 0.0 L Direct Bilirubin 0.00 Indirect Bilirubin 0.0 Aspartate Amino Transf (AST/SGOT) 28 Alanine Aminotransferase (ALT/SGPT) 23 Alkaline Phosphatase 74 Total Protein 7.1 Albumin 3.5 Globulin 3.60 H Albumin/Globulin Ratio 0.97 Lipase 116 Thyroid Stimulating Hormone (TSH) 0.913 Hepatitis B Surface Antigen NEGATIVE Hepatitis B Core Total Antibody NEGATIVE Hepatitis C Antibody NEGATIVE Consultation Date/Type/Reason Admit Date/Time Oct 01, 2018 at 13:06 Initial Consult Date 10/01/18 Exam/Review of Systems Vital Signs Vitals Vital Signs Date Temp Pulse Resp B/P (MAP) Pulse Ox O2 O2 Flow FiO2 Time Delivery Rate 1/21/19 99.1 97 17 140/80 95 11:06 (100) 10/01/18 Room Air 15:44 Intake and Output 10/02/18 10/02/18 10/03/18 1515:00 23:00 07:00 IntakeIntake Total 1000 ml 1490 ml OutputOutput Total 3 ml BalanceBalance 1000 ml 1487 ml Medications Medications Current Medications Sodium Chloride 1,000 ml @ 70 mls/hr [id number] IV Last administered on 10/03/18at 02:20; Admin Dose 70 MLS/HR; Start 10/01/18 at 10:48 IV Flush (NS 3 ml) 3 ml PER PROTOCOL IV ; Start 10/01/18 at 11:00 Ondansetron HCl (Zofran Inj) 4 mg Q6H PRN IV NAUSEA AND/OR VOMITING; Start 10/01/18 at 11:00 Acetaminophen (Tylenol Tab) 650 mg Q6H PRN PO PAIN LEVEL 1-3 OR FEVER Last administered on 10/01/18at 20:55; Admin Dose 650 MG; Start 10/01/18 at 11:00 Acetaminophen/ Hydrocodone Bitart ([place] (5/325)) 1 tab Q6H PRN PO PAIN LEVEL 4-6 Last administered on 10/01/18at 19:02; Admin Dose 1 TAB; Start 10/01/18 at 1 1:00 Vancomycin HCl (Vanco Iv Per Pharmacy) VANCOMYCIN PER PHARMACY PER PROTOCOL XX ; Start 10/01/18 at 11:00 Cefepime HCl 50 ml @ 100 mls/hr Q12 IVPB Last administered on 10/03/18at 08:59; Admin Dose 100 MLS/HR; Start 10/01/18 at 18:00 Enoxaparin Sodium (Lovenox) 40 mg DAILY SC Last administered on 10/03/18at 09:02; Admin Dose 40 MG; Start 10/03/18 at 09:00 Vancomycin HCl 1.25 gm/Sodium Chloride 250 ml @ 83.333 mls/ hr Q12H IVPB Last administered on 10/03/18at 10:37; Admin Dose 83.333 MLS/HR; Start 10/03/18 at 10:00 ROBERTO VEGA NP Oct 03, 2018 12:10
--- NOTE | 2018-10-03 17:51 | DS ---
Date/Time of Note Date/Time of Note DATE: 10/03/18 TIME: 17:49 Discharge Summary Admission/Discharge Info Admit Date/Time Oct 01, 2018 at 13:06 Discharge Date/Time Patient Condition: Good Consults Dr. Rojo Procedures Chest x-ray: No acute process CT brain: No acute process 2D echo Conclusions Normal left ventricular systolic function. Normal left ventricular cavity size. Normal left ventricular wall thickness. Ejection fraction is visually estimated at 55 %. Tissue Doppler/Mitral Doppler indices are within normal limits. Normal appearance of the mitral valve. No mitral valve regurgitation is seen. Normal appearance of the tricuspid valve. No evidence of tricuspid regurgitation. Hx of Present Illness 43-year-old female admitted with fever failure to thrive Hospital Course H Course: Admitted and evaluated for sepsis of unknown etiology likely viral. Cultures blood urine influenza negative. Chest x-ray negative. Treated conservatively. Seen by ID. Presently stable and fit for discharge on supportive care. Assessment and plan 1. Sirs suspected sepsis unknown etiology likely viral process. Stable continue supportive care 2. History of 3. History of UTI Subjective: Less fever. Positive cough recent sore throat. Did not receive her flu shot. Fairly nonproductive cough. No travel ill contacts. No dysuria abdominal pain rash. Objective: Sinus rhythm less tacky fever noted Physical exam No pallor icterus adenopathy Regular no murmur gallop Clear Benign No edema Home Meds Discontinued Scripts Ciprofloxacin Hcl* (Ciprofloxacin Hcl*) 500 Mg Tablet, 500 MG PO BID for 7 Days, TAB Prov:QUINTIN MANZO PA-C 06/07/18 Acetaminophen* (Tylophen*) 500 Mg Capsule, 1 CAP PO Q6H PRN for PAIN AND OR ELEVATED TEMP, #20 CAP Prov:PAVEL GARVIN PA-C 06/05/18 Cephalexin* (Keflex*) 500 Mg Capsule, 500 MG PO TID for 7 Days, CAP Prov:PAVEL GARVIN PA-C 06/05/18 Primary Care Provider Care Physician No Primary Time spent on discharge: > 30 minutes Pending Labs Laboratory Tests Test 10/03/18 00:56 10/03/18 05:45 Vancomycin Level Trough 8.8 ug/ml (10.0-20.0) White Blood Count 5.8 10^3/ul (4.8-10.8) Red Blood Count 4.55 10^6/ul (4.20-5.40) Hemoglobin 13.6 g/dl (12.0-16.0) Hematocrit 40.3 % (37.0-47.0) Mean Corpuscular Volume 88.6 fl (82.0-101.0) Mean Corpuscular Hemoglobin 29.9 pg (29.0-33.0) Mean Corpuscular 33.7 g/dl (32.0-37.0) Hemoglobin Concent Red Cell Distribution Width 12.7 % (11.5-14.5) Platelet Count 248 10^3/UL (140-415) Mean Platelet Volume 10.4 fl (7.4-10.4) Immature Granulocytes % 0.300 % (0.001-0.429) Neutrophils % 57.9 % (39.0-77.0) Lymphocytes % 28.4 % (15.0-51.0) Monocytes % 11.9 % (0.0-11.0) Eosinophils % 1.2 % (0.0-7.0) Basophils % 0.3 % (0.0-2.0) Nucleated Red Blood Cells % 0.0 /100WBC (0.0-0.0) Immature Granulocytes # 0.020 10^3/ul (0.0-0.031) Neutrophils # 3.3 10^3/ul (1.6-7.5) Lymphocytes # 1.6 10^3/ul (0.8-2.9) Monocytes # 0.7 10^3/ul (0.3-0.9) Eosinophils # 0.1 10^3/ul (0.0-0.5) Basophils # 0.0 10^3/ul (0.0-0.1) Nucleated Red Blood Cells # 0.0 10^3/ul (0.0-0.0) Sodium Level 136 mmol/L (135-144) Potassium Level 3.8 mmol/L (3.5-5.1) Chloride Level 105 mmol/L (97-110) Carbon Dioxide Level 22 mmol/L (21-31) Anion Gap 9 (5-13) Blood Urea Nitrogen 8 mg/dl (7-20) Creatinine 0.59 mg/dl (0.44-1.00) Est Glomerular Filtrat > 60 mL/min (>60) Rate mL/min Glucose Level 100 mg/dl (70-220) Calcium Level 8.7 mg/dl (8.4-10.2) Magnesium Level 1.9 mg/dl (1.7-2.5) Total Bilirubin 0.0 mg/dl (0.2-1.3) Direct Bilirubin 0.00 mg/dl (0.00-0.20) Indirect Bilirubin 0.0 mg/dl (0-1.1) Aspartate Amino 28 IU/L (15-46) Transf (AST/SGOT) Alanine 23 IU/L (13-69) Aminotransferase (ALT/SGPT) Alkaline Phosphatase 74 IU/L (42-121) Total Protein 7.1 g/dl (6.1-8.1) Albumin 3.5 g/dl (3.3-4.9) Globulin 3.60 g/dl (1.3-3.2) Albumin/Globulin Ratio 0.97 Lipase 116 U/L (23-300) Thyroid Stimulating 0.913 MIU/L (0.465-4.680) Hormone (TSH) Hepatitis B Surface Antigen NEGATIVE (NEGATIVE) Hepatitis B Core NEGATIVE (NEGATIVE) Total Antibody Hepatitis C Antibody NEGATIVE (NEGATIVE) SILVANA SALAS MD Oct 03, 2018 17:51
--- NOTE | 2018-10-03 17:51 | PDOCDIS ---
Discharge Instructions CONDITION [id number] Patient Condition: [id number] Stable HOME CARE INSTRUCTIONS: [id number] Diet Instructions: [id number] Regular ACTIVITY: [id number] Activity Restrictions: [id number] Slowly Increase Activity FOLLOW UP/APPOINTMENTS Follow-up Plan appt PCP 1-2wSILVANA Flor MD Oct 03, 2018 17:51
[2018-10-03] MEDS ORDERED: ACET325T33 PO (17:52)
[2018-10-03] MEDS ORDERED: GUAI5SYR2 PO (17:52)
== END 2018-10-03 19:15 | disposition home or self-care (01) | DRG 872 ==
LOC: E/R 05:14 → TEL 11:57 → OBSVTOIN 13:06
PROVIDERS: ADMIT Internal Medicine; ATTEND Internal Medicine
DX: A41.9 Sepsis, unspecified organism (principal); R55 Syncope and collapse; R62.7 Adult failure to thrive; Z68.28 Body mass index [BMI] 28.0-28.9, adult
CPT/HCPCS: 36415; 70450; 71045; 80053; 80202; 81003; 83036; 83605; 83690; 83735; 84443; 84484; 84703; 85025; 85610; 85730; 86704; 86709; 86803; 87040; 87086; 87340; 87400; 93005; 93306; 96361; 96365; 96366; 96367; G0378; J0692; J1650; J3370; J7030; J7050